=== PATIENT | male | born 1955 | race African-American/Black ===

== ENCOUNTER 2020-09-06 17:01 | Inpatient (IN) | payer BC ==
[~2020-09-06] VITALS: Ht 170.2 cm; Wt 64.9 kg
[2020-09-06 19:03] LABS: BASOPHILS % 0.6 % (0.0-2.0); EOSINOPHILS % 0.1 % (0.0-5.0); HEMATOCRIT. 42.5 % (42.0-52.0); HEMOGLOBIN. 14.3 g/dL (14.0-18.0); LYMPHOCYTES % 7.3 % (20.0-50.0); MEAN CORPUSCULAR HEMOGLOBIN 30.7 pg (28.0-32.0); MEAN CORPUSCULAR VOLUME 91.5 fL (80.0-94.0); MEAN PLATELET VOLUME 9.3 fl (7.4-10.4); MONOCYTES % 7.3 % (2.0-8.0); NEUTROPHILS % 84.7 % (40.0-76.0); PLATELET 116 x1000/uL (130-400); RED BLOOD CELL COUNT 4.64 mill/uL (4.7-6.1); RED CELL DISTRIBUTION WIDTH 14.2 % (11.6-14.6)
[2020-09-06] MEDS ORDERED: NITROGLYCERIN 0.4MG TABLET SL SL PRN (21:45)
[2020-09-06] MEDS ORDERED: IPRATROPIUM/ALBUTEROL 0.5-3(2.5)MG/3ML NEB NEB PRN (21:45)
[2020-09-06] MEDS ORDERED: GUAIFENESIN 200MG/10ML SUGAR FREE UDC PO PRN (21:45)
[2020-09-06] MEDS ORDERED: ONDANSETRON HCL 4MG/2ML INJ IV PRN (21:45)
[2020-09-06] MEDS ORDERED: CLONIDINE 0.1MG TABLET PO PRN (21:45)
[2020-09-06] MEDS ORDERED: ENOXAPARIN 40MG/0.4ML SYR SUBCUT SCH (21:45)
[2020-09-06] MEDS ORDERED: ZOLPIDEM TARTRATE 5MG TABLET PO PRN (21:45)
[2020-09-06] MEDS ORDERED: MAGNESIUM/ALUMINUM HYDROXIDE/SIMETHICONE 30ML UDC PO PRN (21:45)
[2020-09-06] MEDS ORDERED: DOCUSATE SODIUM 100MG CAPSULE PO PRN (21:45)
[2020-09-06] MEDS ORDERED: ACETAMINOPHEN 325MG TABLET PO PRN ×2 (21:45)
[2020-09-06] MEDS: ENOXAPARIN 30MG/0.3ML SYR SUBCUT SCH (22:31)
[2020-09-06 23:15] VITALS: BP 135/81
[2020-09-06 23:16] LABS: CLARITY URINE CLEAR (CLEAR); COLOR URINE YELLOW (YELLOW); KETONES URINE NEGATIVE (NEGATIVE); LEUKOCYTE ESTERASE URINE TRACE (NEGATIVE); NITRITE URINE NEGATIVE (NEGATIVE); OCCULT BLOOD URINE 3+ (NEGATIVE); PH URINE 5.5 (4.5-8.0); PROTEIN URINE TRACE (NEGATIVE); SPECIFIC GRAVITY URINE 1.013 (1.005-1.030); UROBILINOGEN URINE 0.2 E.U./dL (0.2-1.0)
[2020-09-06 23:27] LABS: *AMPHETAMINES SCREEN URINE NEGATIVE (NEGATIVE); *BARBITURATES SCREEN URINE NEGATIVE (NEGATIVE); *BENZODIAZEPINES SCREEN URINE NEGATIVE (NEGATIVE); *COCAINE SCREEN URINE NEGATIVE (NEGATIVE); METHADONE URINE SCREEN NEGATIVE (NEGATIVE)
[2020-09-06 23:29] LABS: CANNABINOID URINE SCREEN NEGATIVE (NEGATIVE); OPIATES URINE SCREEN NEGATIVE (NEGATIVE); PHENCYCLIDINE URINE SCREEN NEGATIVE (NEGATIVE)
[2020-09-07] VITALS: BP 141/82
[2020-09-07] MEDS: LACTULOSE 20G/30ML UDC PO SCH ×5 (02:28→21:49)
[2020-09-07 04:00] VITALS: BP 116/81
[2020-09-07 08:00] VITALS: BP 124/72
[2020-09-07] MEDS: FAMOTIDINE 20MG TABLET PO SCH (08:37)
[2020-09-07] MEDS: ASCORBIC ACID 500 MG TABLET PO SCH ×2 (08:37→21:48)
[2020-09-07] MEDS: ZINC SULFATE 220 MG ( 50 ) CAPSULE PO SCH (08:37)
[2020-09-07 12:00] VITALS: BP 119/77
[2020-09-07] MEDS ORDERED: INFLUENZA VACCINE 05/PF 0.5 ML VIAL IM ONE (12:00)
[2020-09-07] MEDS ORDERED: PNEUMOCOCCAL 23-VAL P-SAC VAC 0.5 ML IM ONE (12:00)
[2020-09-07 16:00] VITALS: BP 116/70
[2020-09-07 16:39] LABS: CHLORIDE 105 mEq/L (98-107)
[2020-09-07] MEDS ORDERED: CEFTRIAXONE 1 G PREMIX 50 ML IV SCH (17:15)
[2020-09-07] MEDS ORDERED: CEFTRIAXONE 1,000 MG in DEXTROSE 5% WATER 50 ML IV SCH (18:30)
[2020-09-07 20:00] VITALS: BP 108/62
[2020-09-07] MEDS ORDERED: ATORVASTATIN CALCIUM 10MG TABLET PO SCH (21:00)
[2020-09-07] MEDS: TAMSULOSIN HCL 0.4MG SR CAPSULE PO SCH (21:48)
[2020-09-07] MEDS: ENOXAPARIN 30MG/0.3ML SYR SUBCUT SCH (21:48)
[2020-09-08] VITALS: BP 112/71
[2020-09-08 04:00] VITALS: BP 103/63
[2020-09-08] MEDS: LACTULOSE 20G/30ML UDC PO SCH ×4 (05:17→12:00)
[2020-09-08 06:04] LABS: BASOPHILS % 0.5 % (0.0-2.0); EOSINOPHILS % 2.3 % (0.0-5.0); HEMATOCRIT. 37.9 % (42.0-52.0); HEMOGLOBIN. 12.8 g/dL (14.0-18.0); LYMPHOCYTES % 37.7 % (20.0-50.0); MEAN CORPUSCULAR HEMOGLOBIN 30.9 pg (28.0-32.0); MEAN CORPUSCULAR VOLUME 91.7 fL (80.0-94.0); MEAN PLATELET VOLUME 9.4 fl (7.4-10.4); MONOCYTES % 9.7 % (2.0-8.0); NEUTROPHILS % 49.8 % (40.0-76.0); PLATELET 121 x1000/uL (130-400); RED BLOOD CELL COUNT 4.13 mill/uL (4.7-6.1); RED CELL DISTRIBUTION WIDTH 13.8 % (11.6-14.6)
[2020-09-08 06:19] LABS: CHLORIDE 105 mEq/L (98-107)
[2020-09-08 07:28] LABS: PHOSPHORUS 2.5 mg/dL (2.5-4.9)
[2020-09-08 08:00] VITALS: BP 123/81
[2020-09-08] MEDS: ASCORBIC ACID 500 MG TABLET PO SCH (08:30)
[2020-09-08] MEDS: FAMOTIDINE 20MG TABLET PO SCH (08:31)
[2020-09-08] MEDS: TAMSULOSIN HCL 0.4MG SR CAPSULE PO SCH (08:31)
[2020-09-08] MEDS: ZINC SULFATE 220 MG ( 50 ) CAPSULE PO SCH (08:33)
[2020-09-08 12:00] VITALS: BP 103/64
[2020-09-08] MEDS: DUTASTERIDE 0.5MG CAPSULE PO SCH ×2 (14:51→14:55)
[2020-09-08 15:57] VITALS: BP 123/81
== END 2020-09-08 17:00 | disposition home or self-care (01) | DRG 725 ==
LOC: ER 17:01 → 8WST 21:16 → ENRESERV 22:26
PROVIDERS: ADMIT Internal Medicine; ATTEND Internal Medicine
DX: N40.1 Benign prostatic hyperplasia with lower urinary tract symptoms (principal); N17.0 Acute kidney failure with tubular necrosis; E87.1 Hypo-osmolality and hyponatremia; N13.8 Other obstructive and reflux uropathy; E44.0 Moderate protein-calorie malnutrition; R33.8 Other retention of urine; K59.00 Constipation, unspecified; E78.5 Hyperlipidemia, unspecified; E78.00 Pure hypercholesterolemia, unspecified; N13.9 Obstructive and reflux uropathy, unspecified
CPT/HCPCS: 36415; 74176; 76770; 80048; 80053; 80061; 80305; 81003; 83036; 83735; 84100; 84153; 85025; 90686; 90732; 93005; 93970; 99285; J0696; J1650; J7060; G0103

== ENCOUNTER 2020-09-21 11:49 | Emergency (ER) | payer BC ==
[~2020-09-21] VITALS: Ht 177.8 cm; Wt 65.0 kg
[2020-09-21 12:30] VITALS: BP 129/73
== END 2020-09-21 14:00 | disposition home or self-care (01) ==
LOC: ER 11:49
DX: T83.028A Displacement of other urinary catheter, initial encounter (principal); Y73.8 Miscellaneous gastroenterology and urology devices associated with adverse incidents, not elsewhere classified; Y92.89 Other specified places as the place of occurrence of the external cause; R03.0 Elevated blood-pressure reading, without diagnosis of hypertension
CPT/HCPCS: 51702; 93005; 99284

== ENCOUNTER 2020-10-29 07:40 | Emergency (ER) | payer BC ==
[~2020-10-29] VITALS: Ht 172.7 cm; Wt 73.0 kg
[2020-10-29 08:40] VITALS: BP 167/95
== END 2020-10-29 09:17 | disposition home or self-care (01) ==
LOC: ER 08:52
DX: T83.098A Other mechanical complication of other urinary catheter, initial encounter (principal); X58.XXXA Exposure to other specified factors, initial encounter
CPT/HCPCS: 99281

== ENCOUNTER 2020-11-16 19:38 | Emergency (ER) | payer BC ==
[~2020-11-16] VITALS: Ht 170.2 cm; Wt 73.0 kg
[2020-11-16 20:31] VITALS: BP 137/78
== END 2020-11-16 20:35 | disposition home or self-care (01) ==
LOC: ER 19:38
DX: T83.018A Breakdown (mechanical) of other urinary catheter, initial encounter (principal); Y73.8 Miscellaneous gastroenterology and urology devices associated with adverse incidents, not elsewhere classified; Y92.89 Other specified places as the place of occurrence of the external cause; R33.9 Retention of urine, unspecified
CPT/HCPCS: 51702; 99284; A4315

== ENCOUNTER 2020-12-06 15:21 | Emergency (ER) | payer BC ==
[~2020-12-06] VITALS: Ht 162.6 cm; Wt 74.0 kg
[2020-12-06 16:53] LABS: BASOPHILS % 1.1 % (0.0-2.0); EOSINOPHILS % 3.6 % (0.0-5.0); HEMATOCRIT. 39.5 % (42.0-52.0); HEMOGLOBIN. 13.3 g/dL (14.0-18.0); LYMPHOCYTES % 37.8 % (20.0-50.0); MEAN CORPUSCULAR HEMOGLOBIN 30.4 pg (28.0-32.0); MEAN CORPUSCULAR VOLUME 90.1 fL (80.0-94.0); MEAN PLATELET VOLUME 8.7 fl (7.4-10.4); MONOCYTES % 7.3 % (2.0-8.0); NEUTROPHILS % 50.2 % (40.0-76.0); PLATELET 172 x1000/uL (130-400); RED BLOOD CELL COUNT 4.39 mill/uL (4.7-6.1)
[2020-12-06 16:58] LABS: CHLORIDE 104 mEq/L (98-107)
[2020-12-06 17:03] LABS: INR 0.9
[2020-12-06 19:16] LABS: CLARITY URINE CLOUDY (CLEAR); COLOR URINE YELLOW (YELLOW); KETONES URINE NEGATIVE (NEGATIVE); LEUKOCYTE ESTERASE URINE 1+ (NEGATIVE); NITRITE URINE NEGATIVE (NEGATIVE); OCCULT BLOOD URINE 1+ (NEGATIVE); PROTEIN URINE 1+ (NEGATIVE); SPECIFIC GRAVITY URINE 1.022 (1.005-1.030)
[2020-12-06 21:35] VITALS: BP 139/83
== END 2020-12-06 22:48 | disposition home or self-care (01) ==
LOC: ER 15:21
DX: N40.1 Benign prostatic hyperplasia with lower urinary tract symptoms (principal); N39.0 Urinary tract infection, site not specified; R33.8 Other retention of urine; R31.9 Hematuria, unspecified
CPT/HCPCS: 36415; 80053; 81003; 85025; 93005; 99285

== ENCOUNTER 2021-01-09 20:29 | Emergency (ER) | payer BC ==
[~2021-01-09] VITALS: Ht 177.8 cm; Wt 71.7 kg
[2021-01-09 20:37] VITALS: BP 186/96
[2021-01-09] MEDS ORDERED: CEPH250C2 PO (21:41)
== END 2021-01-09 22:07 | disposition home or self-care (01) ==
LOC: ER 20:29
DX: T82.41XA Breakdown (mechanical) of vascular dialysis catheter, initial encounter (principal); N30.00 Acute cystitis without hematuria; N40.1 Benign prostatic hyperplasia with lower urinary tract symptoms; R33.8 Other retention of urine; Z79.899 Other long term (current) drug therapy
CPT/HCPCS: 51702; 99284; A4315

== ENCOUNTER 2021-01-13 06:04 | Emergency (ER) | payer BC ==
[~2021-01-13] VITALS: Ht 172.7 cm; Wt 73.0 kg
[~2021-01-13 06:04] MED LIST: CEPH250C2 PO
[2021-01-13] MEDS ORDERED: ACETAMINOPHEN WITH CODEINE 300/30MG TABLET PO ONE (07:30)
[2021-01-13] MEDS ORDERED: AMOXICILLIN/POTASSIUM CLAVULANATE 875/125MG TAB PO ONE (07:30)
[2021-01-13] MEDS ORDERED: IBUP-2029 MT (07:34)
[2021-01-13] MEDS ORDERED: DOXY100C2 MT (07:37)
[2021-01-13] MEDS ORDERED: AMOX-424 MT (07:37)
[2021-01-13 08:30] VITALS: BP 137/87
[2021-01-13 08:33] LABS: CLARITY URINE CLOUDY (CLEAR); COLOR URINE ORANGE (YELLOW); KETONES URINE TRACE (NEGATIVE); LEUKOCYTE ESTERASE URINE 2+ (NEGATIVE); NITRITE URINE POSITIVE (NEGATIVE); OCCULT BLOOD URINE 3+ (NEGATIVE); PH URINE 5.5 (4.5-8.0); PROTEIN URINE 3+ (NEGATIVE); SPECIFIC GRAVITY URINE 1.026 (1.005-1.030)
== END 2021-01-13 10:42 | disposition home or self-care (01) ==
LOC: ER 06:04
DX: N45.1 Epididymitis (principal); N43.1 Infected hydrocele; B96.5 Pseudomonas (aeruginosa) (mallei) (pseudomallei) as the cause of diseases classified elsewhere; N40.1 Benign prostatic hyperplasia with lower urinary tract symptoms; R33.8 Other retention of urine; Z96.0 Presence of urogenital implants
CPT/HCPCS: 76870; 81003; 87077; 87186; 93005; 93976; 99285

== ENCOUNTER 2021-06-17 12:18 | Emergency (ER) | payer BC ==
[~2021-06-17] VITALS: Ht 172.7 cm; Wt 65.0 kg
[~2021-06-17 12:18] MED LIST changes: +CEFP200T13 MT; +DOXY100C2 MT; +IBUP-2029 MT
[2021-06-17 14:29] LABS: CHLORIDE 111 mEq/L (98-107)
[2021-06-17 14:31] LABS: HEMATOCRIT. 42.7 % (42.0-52.0); HEMOGLOBIN. 14.2 g/dL (14.0-18.0); MEAN CORPUSCULAR HEMOGLOBIN 30.3 pg (28.0-32.0); MEAN CORPUSCULAR VOLUME 90.8 fL (80.0-94.0); MEAN PLATELET VOLUME 8.7 fl (7.4-10.4); PLATELET 208 x1000/uL (130-400); RED CELL DISTRIBUTION WIDTH 14.4 % (11.6-14.6)
[2021-06-17 14:40] LABS: CLARITY URINE TURBID (CLEAR); KETONES URINE TRACE (NEGATIVE); LEUKOCYTE ESTERASE URINE 3+ (NEGATIVE); NITRITE URINE NEGATIVE (NEGATIVE); OCCULT BLOOD URINE 3+ (NEGATIVE); PH URINE 7.5 (4.5-8.0); PROTEIN URINE 4+ (NEGATIVE); SPECIFIC GRAVITY URINE 1.024 (1.005-1.030)
[2021-06-17 14:45] LABS: COLOR URINE BLOODY (YELLOW)
[2021-06-17] MEDS ORDERED: ONDANSETRON HCL 4MG/2ML INJ IV STA (16:34)
[2021-06-17] MEDS ORDERED: MORPHINE SULFATE 4 MG/ML CPJ (NOT FOR IM USE) IV STA (16:34)
[2021-06-17] MEDS ORDERED: CEFTRIAXONE 1 G PREMIX 50 ML IV ONE (16:45)
[2021-06-17] MEDS ORDERED: CEPH250C2 MT (16:52)
[2021-06-17] MEDS ORDERED: TAMS-11 MT (16:52)
[2021-06-17 17:53] VITALS: BP 164/72
[2021-06-17 18:25] LABS: PLATELET ESTIMATE NORMAL
== END 2021-06-17 18:01 | disposition home or self-care (01) ==
LOC: ER 12:18
DX: R33.9 Retention of urine, unspecified (principal); N39.0 Urinary tract infection, site not specified; Z79.899 Other long term (current) drug therapy
CPT/HCPCS: 36415; 51702; 74176; 80053; 81003; 85025; 87077; 87086; 87186; 96374; 96375; 99284; J2270; J2405; Z7610

== ENCOUNTER 2021-11-05 08:38 | Emergency (ER) | payer BC ==
[~2021-11-05] VITALS: Ht 162.6 cm; Wt 59.0 kg
[~2021-11-05 08:38] MED LIST changes: +CEPH250C2 MT; -DOXY100C2 MT; +DOXY100C5 MT; +TAMS-11 MT
[2021-11-05 10:42] LABS: CLARITY URINE CLOUDY (CLEAR); COLOR URINE YELLOW (YELLOW); KETONES URINE NEGATIVE (NEGATIVE); LEUKOCYTE ESTERASE URINE 3+ (NEGATIVE); NITRITE URINE POSITIVE (NEGATIVE); OCCULT BLOOD URINE 3+ (NEGATIVE); PH URINE 8.5 (4.5-8.0); PROTEIN URINE 2+ (NEGATIVE)
[2021-11-05] MEDS ORDERED: CEPHALEXIN 250MG CAPSULE PO NR (11:00)
[2021-11-05] MEDS ORDERED: CEPH500T MT (11:00)
[2021-11-05 11:45] VITALS: BP 135/81
== END 2021-11-05 11:46 | disposition home or self-care (01) ==
LOC: ER 08:38
DX: Z43.6 Encounter for attention to other artificial openings of urinary tract (principal); N39.0 Urinary tract infection, site not specified; N40.1 Benign prostatic hyperplasia with lower urinary tract symptoms; R33.8 Other retention of urine
CPT/HCPCS: 81003; 87077; 87186; 99283; A4315

== ENCOUNTER 2021-11-26 22:29 | Emergency (ER) | payer SELFPAY ==
[~2021-11-26] VITALS: Ht 170.2 cm; Wt 68.0 kg
[~2021-11-26 22:29] MED LIST changes: +CEPH500T MT
[2021-11-26 23:33] VITALS: BP 126/90
[2021-11-27 02:47] LABS: CLARITY URINE CLOUDY (CLEAR); COLOR URINE YELLOW (YELLOW); KETONES URINE NEGATIVE (NEGATIVE); LEUKOCYTE ESTERASE URINE 3+ (NEGATIVE); NITRITE URINE POSITIVE (NEGATIVE); OCCULT BLOOD URINE 3+ (NEGATIVE); PH URINE 6.5 (4.5-8.0); PROTEIN URINE TRACE (NEGATIVE); SPECIFIC GRAVITY URINE 1.013 (1.005-1.030); UROBILINOGEN URINE 0.2 E.U./dL (0.2-1.0)
[2021-11-27] MEDS ORDERED: LEVO750T46 MT (03:18)
== END 2021-11-27 03:30 | disposition home or self-care (01) ==
LOC: ER 22:29
DX: R33.9 Retention of urine, unspecified (principal); N39.0 Urinary tract infection, site not specified; Z79.899 Other long term (current) drug therapy
CPT/HCPCS: 81003; 99283

== ENCOUNTER 2022-01-21 11:36 | Emergency (ER) | payer BC, OTHER ==
[~2022-01-21] VITALS: Ht 170.2 cm; Wt 77.0 kg
[~2022-01-21 11:36] MED LIST changes: +LEVO750T46 MT
[2022-01-21 17:12] LABS: CLARITY URINE CLOUDY (CLEAR); COLOR URINE YELLOW (YELLOW); KETONES URINE NEGATIVE (NEGATIVE); LEUKOCYTE ESTERASE URINE 3+ (NEGATIVE); NITRITE URINE NEGATIVE (NEGATIVE); OCCULT BLOOD URINE 3+ (NEGATIVE); PH URINE 6.5 (4.5-8.0); PROTEIN URINE 1+ (NEGATIVE); SPECIFIC GRAVITY URINE 1.015 (1.005-1.030); UROBILINOGEN URINE 0.2 E.U./dL (0.2-1.0)
[2022-01-21] MEDS ORDERED: LEVO750T46 MT (17:30)
[2022-01-21] MEDS ORDERED: SODIUM CHLORIDE 0.9% 1,000 ML IV ONE ×2 (18:15)
[2022-01-21] MEDS ORDERED: CEFTRIAXONE 1 G PREMIX 50 ML IV ONE (18:15)
[2022-01-21 19:27] LABS: HEMATOCRIT. 40.6 % (42.0-52.0); MEAN CORPUSCULAR VOLUME 90.3 fL (80.0-94.0); MEAN PLATELET VOLUME 9.1 fl (7.4-10.4); PLATELET 181 x1000/uL (130-400)
[2022-01-21 20:05] LABS: CHLORIDE 108 mEq/L (98-107)
[2022-01-21 20:46] LABS: PLATELET ESTIMATE NORMAL
[2022-01-21 21:37] VITALS: BP 155/91
== END 2022-01-21 21:40 | disposition home or self-care (01) ==
LOC: ER 12:23
DX: N39.0 Urinary tract infection, site not specified (principal); R00.0 Tachycardia, unspecified; N40.1 Benign prostatic hyperplasia with lower urinary tract symptoms; R33.8 Other retention of urine; R39.15 Urgency of urination; Z96.0 Presence of urogenital implants; Z79.899 Other long term (current) drug therapy
CPT/HCPCS: 36415; 51702; 80053; 81003; 85025; 87077; 87086; 87186; 96365; 99284; J0696; J7030; A4315

== ENCOUNTER 2022-03-07 09:39 | Emergency (ER) | payer BC ==
[~2022-03-07] VITALS: Ht 162.6 cm; Wt 73.0 kg
[2022-03-07 09:42] VITALS: BP 154/94
[2022-03-07 10:46] LABS: CLARITY URINE TURBID (CLEAR); COLOR URINE ORANGE (YELLOW); KETONES URINE NEGATIVE (NEGATIVE); LEUKOCYTE ESTERASE URINE 3+ (NEGATIVE); NITRITE URINE POSITIVE (NEGATIVE); OCCULT BLOOD URINE 3+ (NEGATIVE); PH URINE 6.5 (4.5-8.0); PROTEIN URINE 2+ (NEGATIVE)
[2022-03-07] MEDS ORDERED: CEFP200T13 MT (11:36)
== END 2022-03-07 12:36 | disposition home or self-care (01) ==
LOC: ER 09:39
DX: Z46.6 Encounter for fitting and adjustment of urinary device (principal); N40.1 Benign prostatic hyperplasia with lower urinary tract symptoms; R33.8 Other retention of urine; N39.0 Urinary tract infection, site not specified; B96.89 Other specified bacterial agents as the cause of diseases classified elsewhere; R03.0 Elevated blood-pressure reading, without diagnosis of hypertension
CPT/HCPCS: 81003; 99283

== ENCOUNTER 2022-04-07 22:44 | Emergency (ER) | payer BC ==
[~2022-04-07] VITALS: Ht 170.2 cm; Wt 65.5 kg
[2022-04-07 22:55] VITALS: BP 157/85
[2022-04-08 01:04] LABS: CLARITY URINE CLOUDY (CLEAR); COLOR URINE YELLOW (YELLOW); KETONES URINE NEGATIVE (NEGATIVE); LEUKOCYTE ESTERASE URINE 3+ (NEGATIVE); NITRITE URINE POSITIVE (NEGATIVE); OCCULT BLOOD URINE 2+ (NEGATIVE); PH URINE 8.5 (4.5-8.0); PROTEIN URINE TRACE (NEGATIVE); SPECIFIC GRAVITY URINE 1.006 (1.005-1.030); UROBILINOGEN URINE 0.2 E.U./dL (0.2-1.0)
[2022-04-08] MEDS ORDERED: LEVO750T46 MT (01:18)
== END 2022-04-08 01:48 | disposition home or self-care (01) ==
LOC: ER 22:44
DX: N39.0 Urinary tract infection, site not specified (principal); Z46.6 Encounter for fitting and adjustment of urinary device; N40.1 Benign prostatic hyperplasia with lower urinary tract symptoms; R33.8 Other retention of urine
CPT/HCPCS: 81003; 99283

== ENCOUNTER 2022-04-30 02:43 | Emergency (ER) | payer BC ==
[~2022-04-30] VITALS: Ht 165.1 cm; Wt 66.0 kg
[2022-04-30 07:04] VITALS: BP 136/74
== END 2022-04-30 07:06 | disposition home or self-care (01) ==
LOC: ER 02:43
DX: R33.9 Retention of urine, unspecified (principal)
CPT/HCPCS: 51702; 99284